=== PATIENT | female | born 1980 | race Caucasian/White ===

== ENCOUNTER 2017-09-20 05:49 | Observation (INO) | payer BC ==
--- NOTE | 2017-09-20 08:23 | ER Document Report ---
ED General - General Chief Complaint: Chest Pain Stated Complaint: CHEST PAIN Time Seen by Provider: 09/20/17 08:21 Mode of Arrival: Ambulatory Information source: Patient TRAVEL OUTSIDE OF THE [place] IN LAST 30 DAYS: No - HPI Notes: 37-year-old female presents to the ED via private car for evaluation of chest heaviness on left-sided chest with SOB that radiates to the shoulder that started yesterday afternoon. Patient also states she has a "stinging" sensation. Pain has been constant. 07/17 and described as heavy and stinging. Tried Tylenol without relief. Patient is a pack-a-day smoker x 10 years. Father at 55 yrs old from congestive heart failure and mother at age 60 of cor pulmonale. Menstrual period was 2 months ago. Denies fevers, chills, vomiting, diarrhea, abdominal pain, hematuria,blurred vision, double vision, loss of vision, speech changes, LH, dizziness, syncope, headaches, wheezing, ST, URI, neck pain, weakness, bowel or bladder dysfunction , saddle anesthesia, numbness or tingling in bilateral upper or lower extremities equally, muscle paralysis, weakness in bilateral upper or lower extremities equally or rash. Denies IV drug use. - Related Data Allergies/Adverse Reactions: No Known Allergies Allergy (Unverified 09/20/17 14:55) Past Medical History - General Information source: Patient - Social History Smoking Status: Current Every Day Smoker Chew tobacco use (# tins/day): No Frequency of alcohol use: Occasional Drug Abuse: None Family History: CAD, Hypertension Patient has suicidal ideation: No Patient has homicidal ideation: No Renal/ Medical History: Denies: Hx Peritoneal Dialysis Review of Systems - Review of Systems Constitutional: No symptoms reported EENT: No symptoms reported Cardiovascular: See HPI Respiratory: See HPI Gastrointestinal: No symptoms reported Genitourinary: No symptoms reported Female Genitourinary: No symptoms reported Musculoskeletal: No symptoms reported Skin: No symptoms reported Hematologic/Lymphatic: No symptoms reported Neurological/Psychological: No symptoms reported Physical Exam - Vital signs Vitals: Temp Pulse Resp BP Pulse Ox 98.1 F 71 18 144/87 H 98 09/20/17 05:50 09/20/17 05:50 09/20/17 05:50 09/20/17 05:50 09/20/17 05:50 - Notes Notes: PHYSICAL EXAMINATION: GENERAL: Well-appearing, well-nourished and in no acute distress. HEAD: Atraumatic, normocephalic. EYES: Pupils equal round and reactive to light, extraocular movements intact, conjunctiva are normal. ENT: Nares patent, oropharynx clear without exudates. Moist mucous membranes. NECK: Normal range of motion, supple without lymphadenopathy LUNGS: Breath sounds clear to auscultation bilaterally and equal. No wheezes rales or rhonchi. HEART: Regular rate and rhythm without murmurs. Unable to reproduce chest pain that brought patient to the ER ABDOMEN: Soft, nontender, nondistended abdomen. No guarding, no rebound. No masses appreciated. Female : deferred Musculoskeletal: Normal range of motion, no pitting or edema. No cyanosis. NEUROLOGICAL: Cranial nerves grossly intact. Normal speech, normal gait. Normal sensory, motor exams PSYCH: Normal mood, normal affect. SKIN: Warm, Dry, normal turgor, no rashes or lesions noted. Course - Re-evaluation Re-evalutation: 09/20/17 12:09 37-year-old female afebrile vitals stable and in no distress. Patient came for evaluation of heaviness on left-sided chest with radiation to shoulder that started yesterday afternoon. Patient also states she has a "stinging" sensation. Pain has been constant. 6 out of 10 tried Tylenol without relief. Patient is a pack-a-day smoker. Father at 55 from congestive heart failure and mother at age 60 of cor pulmonale. CBC does show a leukocytosis of 15.5 with a shift. awaiting on a lactic, blood cultures and urinalysis. Patient is denying any abdominal pain, nausea vomiting. CMP remarkable. First set of troponin 0 0.018. Will repeat a troponin at 1230. EKG non-STEMI. Patient was given nitro, states that the pressure was relieved after taking nitroglycerin tablets sublingually. Has remained afebrile vitals stable and in no distress. Hospitalist consulted at 1212, Maggie Bhandari today, for unstable angina with relief by nitro sublingually to medicine. patient will be placed in observation for further evaluation. Patient agreed with staying for observation and verbalized understanding of this plan of care and agree with plan of care. All questions and concerns were answered by this provider. Patient verbalized understanding of the plan of care of staying and agreed to plan of care. - Vital Signs Vital signs: Temp Pulse Resp BP Pulse Ox 98.0 F 64 18 127/69 H 96 09/20/17 17:30 09/20/17 17:30 09/20/17 17:30 09/20/17 17:30 09/20/17 17:30 - Laboratory Result Diagrams: 09/20/17 08:42 09/20/17 08:42 Laboratory results interpreted by me: 09/20/17 09/20/17 08:42 08:42 WBC 15.2 H Hgb 15.6 H Plt Count 94 L Seg Neutrophils % 79.3 H Absolute Neutrophils 12.0 H Chloride 108 H BUN 6 L Glucose 112 H Discharge - Discharge Clinical Impression: Chest pain Qualifiers: Chest pain type: unspecified Qualified Code(s): R07.9 - Chest pain, unspecified Leukocytosis Qualifiers: Leukocytosis type: bandemia Qualified Code(s): D72.825 - Bandemia Condition: Stable Disposition: ADMITTED OBSERVATION Admitting Provider: Hospitalist - Maggie Bhandari NP Unit Admitted: Telemetry
[2017-09-20] MEDS ORDERED: NORMAL SALINE 500 ML IV PRN (09:12)
[2017-09-20] MEDS ORDERED: NITROGLYCERIN 0.4 MG/TAB 25 TAB/BOTTLE SL ONE (09:12)
[2017-09-20 09:25] LABS: ABSOLUTE BASOPHILS # (AUTO) 0.1 10^3/uL (0.0-0.2); ABSOLUTE EOSINOPHILS # (AUTO) 0.1 10^3/uL (0.0-0.6); ABSOLUTE LYMPHOCYTES (AUTO) 2.4 10^3/uL (0.5-4.7); ABSOLUTE MONOCYTES (AUTO) 0.6 10^3/uL (0.1-1.4); BASOPHILS % (AUTO) 0.5 % (0-2); EOSINOPHILS % (AUTO) 0.6 % (0-6); HEMATOCRIT 45.5 % (36.0-47.0); HEMOGLOBIN 15.6 g/dL (12.0-15.5); LYMPHOCYTES % (AUTO) 15.7 % (13-45); MEAN CORPUSCULAR HEMOGLOBIN 32.1 pg (27.0-33.4); MEAN CORPUSCULAR HGB CONC 34.2 g/dL (32.0-36.0); MEAN CORPUSCULAR VOLUME 94 fl (80-97); MONOCYTES % (AUTO) 3.9 % (3-13); RED BLOOD COUNT 4.85 10^6/uL (3.72-5.28); SEGMENTED NEUTROPHILS % (AUTO) 79.3 % (42-78); TOTAL CELLS COUNTED % (AUTO) 100 %; WHITE BLOOD COUNT 15.2 10^3/uL (4.0-10.5)
[2017-09-20 09:30] LABS: ALANINE AMINOTRANSFERASE 30 U/L (9-52); ALBUMIN 4.1 g/dL (3.5-5.0); ALKALINE PHOSPHATASE 58 U/L (38-126); ANION GAP 10 (5-19); ASPARTATE AMINO TRANSFERASE 16 U/L (14-36); BILIRUBIN,DIRECT 0.3 mg/dL (0.0-0.4); BILIRUBIN,TOTAL 0.4 mg/dL (0.2-1.3); BLOOD UREA NITROGEN 6 mg/dL (7-20); CALCIUM 9.4 mg/dL (8.4-10.2); CARBON DIOXIDE 24 mmol/L (22-30); CHLORIDE 108 mmol/L (98-107); GLUCOSE 112 mg/dL (75-110); PHOSPHORUS 4.3 mg/dL (2.5-4.5); POTASSIUM 4.3 mmol/L (3.6-5.0); SODIUM 142.4 mmol/L (137-145); TOTAL PROTEIN 6.8 g/dL (6.3-8.2)
--- NOTE | 2017-09-20 09:31 | RADIOLOGY REPORT (SQ) ---
EXAM DESCRIPTION: CHEST SINGLE VIEW COMPLETED DATE/TIME: 09/20/2017 9:14 am REASON FOR STUDY: cp with sob COMPARISON: None. EXAM PARAMETERS: NUMBER OF VIEWS: One view. TECHNIQUE: Single frontal radiographic view of the chest acquired. RADIATION DOSE: NA LIMITATIONS: None. FINDINGS: LUNGS AND PLEURA: No opacities, masses or pneumothorax. No pleural effusion. MEDIASTINUM AND HILAR STRUCTURES: No masses. Contour normal. HEART AND VASCULAR STRUCTURES: Heart normal in size. Normal vasculature. BONES: No acute findings. HARDWARE: None in the chest. OTHER: No other significant finding. IMPRESSION: NO ACUTE RADIOGRAPHIC FINDING IN THE CHEST. TECHNICAL DOCUMENTATION: JOB ID: [id number] [employer] All Rights Reserved Reading location - IP/workstation name: [email or web address]
[2017-09-20 09:46] LABS: PLATELET COUNT 94 10^3/uL (150-450)
[2017-09-20] MEDS ORDERED: NORMAL SALINE 1000 ML 1,000 ML IV ONE (11:57)
[2017-09-20 12:52] LABS: APPEARANCE,URINE CLEAR; BILIRUBIN,URINE NEGATIVE (NEGATIVE); COLOR,URINE YELLOW; GLUCOSE, URINE NEGATIVE (NEGATIVE); KETONES,URINE NEGATIVE (NEGATIVE); LEUKOCYTE ESTERASE,URINE NEGATIVE (NEGATIVE); NITRITE,URINE NEGATIVE (NEGATIVE); PROTEIN,URINE NEGATIVE (NEGATIVE); URINE SPECIFIC GRAVITY 1.009; UROBILINOGEN,URINE NEGATIVE mg/dL (<2.0)
[2017-09-20] MEDS ORDERED: MORPHINE SULFATE 10 MG/ML INJ IV PRN (13:49)
[2017-09-20] MEDS ORDERED: NITROGLYCERIN 0.4 MG/TAB 25 TAB/BOTTLE SL PRN (13:49)
[2017-09-20] MEDS ORDERED: ONDANSETRON HCL INJ/PF 4 MG/2 ML SDV IV PRN (13:49)
[2017-09-20] MEDS ORDERED: DOCUSATE SODIUM 100 MG CAPSULE PO PRN (13:49)
[2017-09-20] MEDS ORDERED: IPRATROPIUM/ALBUTEROL 0.5-2.5 MG/3 ML AMPUL NEB PRN (13:54)
[2017-09-20] MEDS ORDERED: NICOTINE 21 MG/24 HR PATCH.TD24 TD PRN (13:57)
[2017-09-20] MEDS ORDERED: LORAZEPAM 0.5 MG TABLET PO PRN (13:58)
[2017-09-20] MEDS ORDERED: HEPARIN SOD (PORCINE) 5,000 UNIT/ML 1 ML SYRINGE SUBCUT SCH (14:00)
--- NOTE | 2017-09-20 14:00 | EKG REPORT ---
SEVERITY:- NORMAL ECG - SINUS RHYTHM : Confirmed by: Jayro Patiño MD 20-Sep-2017 13:59:59
[2017-09-20] MEDS ORDERED: CLONIDINE HCL 0.1 MG TABLET PO ONE (14:15)
--- NOTE | 2017-09-20 15:04 | PDOC H&P ---
History of Present Illness Admission Date/PCP: 09/20/17 12:32 Patient complains of: Atypical Chest Pain History of Present Illness: BAILEE BERRIOS is a 37 year old female with a past medical history significant for ITP and sarcoidosis who presented to the emergency department today with a complaint of atypical chest pain that began yesterday afternoon. She describes her pain as nonradiating "stinging," to her left chest associated with headache and dyspnea on exertion. She denies recent fever, chills, cough, URI symptoms, abdominal pain, nausea and vomiting. The patient states that her pain was relieved following one dose of sublingual nitro provided by the emergency department. Evaluation in the emergency department reveals normal sinus rhythm, benign chest x-ray, leukocytosis (WBCs 15), negative troponin 2, normal d-dimer, tachypnea (RR 11-28), HTN (144/93) and otherwise normal exam. She is referred to the hospitalist service for chest pain rule out. Past Medical History Past Medical History: Sarcoidosis Cardiac Medical History: Reports: None Pulmonary Medical History: Reports: None EENT Medical History: Reports: None Neurological Medical History: Reports: None Endocrine Medical History: Reports: None Renal/ Medical History: Reports: None Malignancy Medical History: Reports: None GI Medical History: Reports: None Musculoskeltal Medical History: Reports: None Skin Medical History: Reports: None Psychiatric Medical History: Reports: None Hematology: Reports: Other - ITP Infectious Medical History: Reports: None Past Surgical History Past Surgical History: Reports: None Social History Information Source: Patient Lives with: Alone Smoking Status: Current Every Day Smoker Cigarettes Packs Per Day: 1 Number of Years Smokin Frequency of Alcohol Use: Rare Hx Recreational Drug Use: No Drugs: None Hx Prescription Drug Abuse: No - Advance Directive Resuscitation Status: Full Code Surrogate healthcare decision maker:: The patient's friend, Magan Massey, Family History Family History: CAD, DM, Hypertension, Malignancy Parental Family History Reviewed: Yes - Both parents before age 60 from cardiac related events Children Family History Reviewed: Yes Sibling(s) Family History Reviewed.: Yes Medication/Allergy Home Medications: No Home Medications 09/20/17 Allergies/Adverse Reactions: No Known Allergies Allergy (Unverified 09/20/17 14:55) Review of Systems Constitutional: ABSENT: chills, fever(s), headache(s), weight gain, weight loss Eyes: ABSENT: visual disturbances Ears: ABSENT: hearing changes Cardiovascular: PRESENT: chest pain, dyspnea on exertion. ABSENT: edema, orthropnea, palpitations Respiratory: ABSENT: cough, hemoptysis Gastrointestinal: PRESENT: nausea. ABSENT: abdominal pain, constipation, diarrhea, hematemesis, hematochezia, vomiting Genitourinary: ABSENT: dysuria, hematuria Musculoskeletal: ABSENT: joint swelling Integumentary: ABSENT: rash, wounds Neurological: ABSENT: abnormal gait, abnormal speech, confusion, dizziness, focal weakness, syncope Psychiatric: ABSENT: anxiety, depression, homidical ideation, suicidal ideation Endocrine: ABSENT: cold intolerance, heat intolerance, polydipsia, polyuria Hematologic/Lymphatic: ABSENT: easy bleeding, easy bruising Physical Exam Vital Signs: Temp Pulse Resp BP Pulse Ox 97.9 F 64 15 120/72 97 09/20/17 08:04 09/20/17 08:04 09/20/17 14:01 09/20/17 14:01 09/20/17 14:01 General appearance: PRESENT: no acute distress, well-developed, well-nourished Head exam: PRESENT: atraumatic, normocephalic Eye exam: PRESENT: conjunctiva pink, EOMI, PERRLA. ABSENT: scleral icterus Ear exam: PRESENT: normal external ear exam Mouth exam: PRESENT: moist, tongue midline Neck exam: ABSENT: carotid bruit, JVD, lymphadenopathy, thyromegaly Respiratory exam: PRESENT: clear to auscultation liban. ABSENT: rales, rhonchi, wheezes Cardiovascular exam: PRESENT: RRR. ABSENT: diastolic murmur, rubs, systolic murmur Pulses: PRESENT: normal dorsalis pedis pul Vascular exam: PRESENT: normal capillary refill GI/Abdominal exam: PRESENT: normal bowel sounds, soft. ABSENT: distended, guarding, mass, organolmegaly, rebound, tenderness Rectal exam: PRESENT: deferred Extremities exam: PRESENT: full ROM. ABSENT: calf tenderness, clubbing, pedal edema Neurological exam: PRESENT: alert, awake, oriented to person, oriented to place , oriented to time, oriented to situation, CN II-XII grossly intact. ABSENT: motor sensory deficit Psychiatric exam: PRESENT: appropriate affect, normal mood. ABSENT: homicidal ideation, suicidal ideation Skin exam: PRESENT: dry, intact, warm. ABSENT: cyanosis, rash Results Laboratory Results: 09/20/17 12:40 Troponin I < 0.012 Impressions: Chest X-Ray 09/20/17 08:22 IMPRESSION: NO ACUTE RADIOGRAPHIC FINDING IN THE CHEST. Assessment & Plan - Diagnosis (1) Chest pain Qualifiers: Chest pain type: unspecified Qualified Code(s): R07.9 - Chest pain, unspecified Is this a current diagnosis for this admission?: Yes Plan: The patient presents with a report of atypical chest pain described as gradual onset of nonradiating "stinging" sensation to her left chest and associated with headache and dyspnea on exertion. Risk factors include family history, obesity, tobacco abuse. EKG demonstrates NSR. Chest x-ray is benign. Troponins are negative 2. Remaining laboratory evaluation is unremarkable other than leukocytosis; WBC 15 The patient is admitted to the medical floor on continuous cardiac telemetry. We will continue to trend troponins. We will obtain hemoglobin A1c, lipid panel, TSH with a.m. labs. CTA of the chest is pending to evaluate for noncardiac causes of chest pain; esophagitis, sarcoidosis. Treadmill stress will be scheduled for the morning. (2) Leukocytosis Qualifiers: Leukocytosis type: bandemia Qualified Code(s): D72.825 - Bandemia Is this a current diagnosis for this admission?: Yes Plan: Unclear etiology; the patient presents with a history of atypical chest pain, described as stinging, dyspnea on exertion, and history of sarcoidosis. She is afebrile and denies recent acute illnesses. Blood cultures are pending. No indication for antibiotic therapy at this time. We will continue to monitor. (3) Obese Qualifiers: Obesity classification: adult class 1 (BMI 30 - 34.9) Is this a current diagnosis for this admission?: Yes Plan: We will assess TSH with a.m. lab work. We will also evaluate lipid panel and hemoglobin A1c. Dietary discretion is advised; patient was placed on a cardiac diet while inpatient for chest pain rule out. (4) Tobacco dependence Is this a current diagnosis for this admission?: Yes Plan: Smoking cessation is encouraged; nicotine replacement therapies are provided. (5) Chronic ITP (idiopathic thrombocytopenia) Is this a current diagnosis for this admission?: No Plan: Current platelet count 94. We will hold heparin/Lovenox therapy at this time. Encourage frequent position change and ambulation for DVT prophylaxis. We will continue low-dose aspirin for ACS rule out.
--- NOTE | 2017-09-20 16:05 | RADIOLOGY REPORT (SQ) ---
EXAM DESCRIPTION: CTA CHEST COMPLETED DATE/TIME: 09/20/2017 3:54 pm REASON FOR STUDY: chest pain COMPARISON: None. TECHNIQUE: CT scan of the chest performed using helical scanning technique with dynamic intravenous contrast injection. Images reviewed with lung, soft tissue and bone windows. Reconstructed coronal and sagittal MPR images reviewed. Additional 3 dimensional post-processing performed to develop Maximal Intensity Projection images (IN P). All images stored on PACS. All CT scanners at this facility use dose modulation, iterative reconstruction, and/or weight based d osing when appropriate to reduce radiation dose to as low as reasonably achievable (ALARA). [facility]: Dose Right [facility]: CareDose [facility]: Dose Right [facility]: Teradose 4D [facility]: Cymax CONTRAST TYPE AND DOSE: contrast/concentration: Isovue 350.00 mg/ml; Total Contrast Delivered: 143.0 ml; Total Saline Delivered: 149.4 ml Contrast bolus optimized for the pulmonary arteries. Not diagnostic for the aorta. RENAL FUNCTION: GFR > 60. RADIATION DOSE: CT Rad equipment meets quality standard of care and radiation dose reduction techniq ues were employed. CTDIvol: 9.9 - 19.8 mGy. DLP: 1140 mGy-cm. . LIMITATIONS: None. FINDINGS: LUNGS AND PLEURA: No masses, infiltrates, or pneumothorax. No pleural effusions or pleura l calcifications. AORTA AND GREAT VESSELS: No aneurysm. Contrast bolus not optimized for the aorta. HEART: No pericardial effusion. No significant coronary artery calcifications. PULMONARY ARTERIES: No emboli visualized in the main pulmonary arteries or the segmental branches. HILAR AND MEDIASTINAL STRUCTURES: No identified masses or abnormal nodes. HARDWARE: None in the chest. UPPER ABDOMEN: No significant findings. Limited exam. THYROID AND OTHER SOFT TISSUES: No masses. No adenopathy. BONES: No acute or significant finding. 3D MIPS: Confirm above findings. OTHER: No other significant finding. IMPRESSION: No evidence of pulmonary emboli. COMMENT: Quality ID # [id number]: Final reports with documentation of one or more dose reduction techniques (e.g., Automated exposure control, adjustment of the mA and/or kV according to patient size, use of iterative reconstruction technique) TECHNICAL DOCUMENTATION: JOB ID: [id number] [employer]- All Rights Reserved Reading location - IP/workstation name: [email or web address]
[2017-09-20] MEDS: LANSOPRAZOLE 30 MG TAB.RAP.DR PO SCH (17:53)
[2017-09-20] MEDS ORDERED: ATORVASTATIN CALCIUM 20 MG TABLET PO SCH (22:00)
[2017-09-21 05:25] LABS: ABSOLUTE BASOPHILS # (AUTO) 0.1 10^3/uL (0.0-0.2); ABSOLUTE EOSINOPHILS # (AUTO) 0.2 10^3/uL (0.0-0.6); ABSOLUTE LYMPHOCYTES (AUTO) 3.8 10^3/uL (0.5-4.7); ABSOLUTE MONOCYTES (AUTO) 0.6 10^3/uL (0.1-1.4); ABSOLUTE NEUT (AUTO) 8.1 10^3/uL (1.7-8.2); BASOPHILS % (AUTO) 0.5 % (0-2); EOSINOPHILS % (AUTO) 1.8 % (0-6); HEMATOCRIT 43.4 % (36.0-47.0); LYMPHOCYTES % (AUTO) 29.4 % (13-45); MEAN CORPUSCULAR HEMOGLOBIN 32.6 pg (27.0-33.4); MEAN CORPUSCULAR HGB CONC 34.7 g/dL (32.0-36.0); MEAN CORPUSCULAR VOLUME 94 fl (80-97); MONOCYTES % (AUTO) 4.8 % (3-13); RED BLOOD COUNT 4.62 10^6/uL (3.72-5.28); RED CELL DISTRIBUTION WIDTH 13.8 % (11.5-14.0); SEGMENTED NEUTROPHILS % (AUTO) 63.5 % (42-78); TOTAL CELLS COUNTED % (AUTO) 100 %; WHITE BLOOD COUNT 12.8 10^3/uL (4.0-10.5)
[2017-09-21 05:37] LABS: ANION GAP 9 (5-19); BLOOD UREA NITROGEN 6 mg/dL (7-20); CALCIUM 9.1 mg/dL (8.4-10.2); CARBON DIOXIDE 24 mmol/L (22-30); CHLORIDE 109 mmol/L (98-107); CHOLESTEROL 172.78 mg/dL (0-200); GLUCOSE 80 mg/dL (75-110); POTASSIUM 4.1 mmol/L (3.6-5.0); SODIUM 141.7 mmol/L (137-145); TRIGLYCERIDES 120 mg/dL (<150)
[2017-09-21 05:48] LABS: DIRECT LDL 88 mg/dL (<100)
[2017-09-21] MEDS: LANSOPRAZOLE 30 MG TAB.RAP.DR PO SCH (05:55)
[2017-09-21 06:05] LABS: PLATELET COUNT 88 10^3/uL (150-450)
[2017-09-21] MEDS ORDERED: ASPIRIN 81 MG TABLET, ENT COATED PO SCH (10:00)
[2017-09-21 10:46] VITALS: BP 127/69
--- NOTE | 2017-09-21 22:23 | PDOC DISCHARGE SUMMARY ---
General - Admit/Disc Date/PCP Admission Date/Primary Care Provider: 09/20/17 12:32 Discharge Date: 09/21/17 - Discharge Diagnosis (1) Chest pain Is this a current diagnosis for this admission?: Yes (2) Leukocytosis Is this a current diagnosis for this admission?: Yes (3) Obese Is this a current diagnosis for this admission?: Yes (4) Tobacco dependence Is this a current diagnosis for this admission?: Yes (5) Chronic ITP (idiopathic thrombocytopenia) Is this a current diagnosis for this admission?: No - Additional Information Resuscitation Status: Full Code Discharge Diet: Regular Discharge Activity: Activity As Tolerated Prescriptions: Nicotine [Nicoderm 21 mg/24 Hr Transderm Patch] 1 each TD DAILYP PRN #30 patch.td24 PRN Reason: Home Medications: Nicotine [Nicoderm 21 mg/24 Hr Transderm Patch] 1 each TD DAILYP PRN #30 patch.td24 09/21/17 History of Present Illness History of Present Illness: BAILEE BERRIOS is a 37 year old female with a past medical history significant for ITP and sarcoidosis who presented to the emergency department today with a complaint of atypical chest pain that began yesterday afternoon. She describes her pain as nonradiating "stinging," to her left chest associated with headache and dyspnea on exertion. She denies recent fever, chills, cough, URI symptoms, abdominal pain, nausea and vomiting. The patient states that her pain was relieved following one dose of sublingual nitro provided by the emergency department. Evaluation in the emergency department reveals normal sinus rhythm, benign chest x-ray, leukocytosis (WBCs 15), negative troponin 2, normal d-dimer, tachypnea (RR 11-28), HTN (144/93) and otherwise normal exam. She is referred to the hospitalist service for chest pain rule out. Hospital Course Hospital Course: The patient was admitted under observational status for complaint of atypical chest pain. EKG demonstrates NSR. Chest x-ray is benign. Chest CTA was negative for PE. Troponins are negative 3. Remaining laboratory evaluation was unremarkable other than leukocytosis; WBC 15 trended down to 12.8. D-dimer is negative. Lipid panel and A1c are acceptable. The patient was monitored overnight on continuous cardiac telemetry; no abnormal rhythms were noted. The patient reported that her chest discomfort gradually resolved overnight. She reports that she has been informed multiple times in the past of an elevated WBC; stating that her siblings are also known to have intermittent leukocytosis. She denies infections or recent acute illness. CRP and Sed rates were reassuring. She was offered the option of inpatient echocardiogram and treadmill stress testing versus referral to outpatient clinical recruiter for further evaluation. She opted to be discharged with close follow up. At time of discharge, the patient was chest pain free and in stable condition. She was provided referrals to a local PCP and to Dr. Patiño, cardiology, for follow up. She was provided a prescription for Nicoderm and strongly encouraged to stop smoking. The patient was instructed to return to the emergency room for any concerning symptoms. Physical Exam Vital Signs: Temp Pulse Resp BP Pulse Ox 98.4 F 81 17 127/69 H 99 09/21/17 10:44 09/21/17 10:44 09/21/17 10:44 09/21/17 10:44 09/21/17 10:44 Intake & Output 09/20/17 09/21/17 09/22/17 06:59 06:59 06:59 Intake Total 1150 Balance 1150 Weight 81.7 kg General appearance: PRESENT: no acute distress, cooperative, obese, well- developed, well-nourished Head exam: PRESENT: atraumatic, normocephalic Eye exam: PRESENT: conjunctiva pink, EOMI, PERRLA. ABSENT: scleral icterus Ear exam: PRESENT: normal external ear exam Mouth exam: PRESENT: moist, tongue midline Neck exam: ABSENT: carotid bruit, JVD, lymphadenopathy, thyromegaly Respiratory exam: PRESENT: clear to auscultation liban. ABSENT: rales, rhonchi, wheezes Cardiovascular exam: PRESENT: RRR. ABSENT: diastolic murmur, rubs, systolic murmur Pulses: PRESENT: normal dorsalis pedis pul Vascular exam: PRESENT: normal capillary refill GI/Abdominal exam: PRESENT: normal bowel sounds, soft. ABSENT: distended, guarding, mass, organolmegaly, rebound, tenderness Rectal exam: PRESENT: deferred Extremities exam: PRESENT: full ROM. ABSENT: calf tenderness, clubbing, pedal edema Neurological exam: PRESENT: alert, awake, oriented to person, oriented to place , oriented to time, oriented to situation, CN II-XII grossly intact. ABSENT: motor sensory deficit Psychiatric exam: PRESENT: appropriate affect, normal mood. ABSENT: homicidal ideation, suicidal ideation Skin exam: PRESENT: dry, intact, warm. ABSENT: cyanosis, rash Results Laboratory Results: 09/21/17 04:15 09/21/17 04:15 09/21/17 09/21/17 09/21/17 04:15 04:15 04:15 WBC 12.8 H RBC 4.62 Hgb 15.0 Hct 43.4 MCV 94 MCH 32.6 MCHC 34.7 RDW 13.8 Plt Count 88 L Seg Neutrophils % 63.5 Lymphocytes % 29.4 Monocytes % 4.8 Eosinophils % 1.8 Basophils % 0.5 Absolute Neutrophils 8.1 Absolute Lymphocytes 3.8 Absolute Monocytes 0.6 Absolute Eosinophils 0.2 Absolute Basophils 0.1 Sodium 141.7 Potassium 4.1 Chloride 109 H Carbon Dioxide 24 Anion Gap 9 BUN 6 L Creatinine 0.63 Est GFR ( Amer) > 60 Est GFR (Non-Af Amer) > 60 Glucose 80 Calcium 9.1 C-Reactive Protein Triglycerides 120 Cholesterol 172.78 LDL Cholesterol Direct 88 VLDL Cholesterol 24.0 HDL Cholesterol 64 TSH 0.74 09/21/17 04:15 WBC RBC Hgb Hct MCV MCH MCHC RDW Plt Count Seg Neutrophils % Lymphocytes % Monocytes % Eosinophils % Basophils % Absolute Neutrophils Absolute Lymphocytes Absolute Monocytes Absolute Eosinophils Absolute Basophils Sodium Potassium Chloride Carbon Dioxide Anion Gap BUN Creatinine Est GFR ( Amer) Est GFR (Non-Af Amer) Glucose Calcium C-Reactive Protein < 5.0 Triglycerides Cholesterol LDL Cholesterol Direct VLDL Cholesterol HDL Cholesterol TSH 09/20/17 09/20/17 12:40 18:32 Troponin I < 0.012 < 0.012 Impressions: Chest/Abdomen CTA 09/20/17 00:00 IMPRESSION: No evidence of pulmonary emboli. Chest X-Ray 09/20/17 08:22 IMPRESSION: NO ACUTE RADIOGRAPHIC FINDING IN THE CHEST. Qualifiers - * PATIENT BEING DISCHARGED WITH ANY OF THE FOLLOWING DIAGNOSIS: No Plan Discharge Plan: Discharge to home with self care. Follow up with primary care provider within 1 week. Follow up with cardiology within 2-4 weeks to discuss further cardiac evaluation such as echocardiogram or stress testing. Return to the emergency department as needed for concerning symptoms. Time Spent: Less than 30 Minutes
== END 2017-09-21 11:32 | disposition home or self-care (01) ==
LOC: ER 05:49 → EH 12:32 → 4S 17:24
PROVIDERS: ADMIT Internal Medicine; ATTEND Internal Medicine
DX: R07.89 Other chest pain (principal); D72.825 Bandemia; F17.210 Nicotine dependence, cigarettes, uncomplicated; D69.3 Immune thrombocytopenic purpura; D86.9 Sarcoidosis, unspecified; R51 Headache; R06.00 Dyspnea, unspecified; I10 Essential (primary) hypertension; R11.0 Nausea; E66.8 Other obesity; Z68.31 Body mass index [BMI] 31.0-31.9, adult; Z82.49 Family history of ischemic heart disease and other diseases of the circulatory system
CPT/HCPCS: 93005; 99285; 96360; 96361; 36415 ×2; 87040; 84702; 83735; 84100; 84443; 85025 ×2; 85652; 86140; 80048; 80053; 81001; 84484; 83036; 85379; 83605; 80061; 71045; 71275; 93010; G0378 ×3; J3490 ×2; J7030; J7040